=== PATIENT | female | born 1940 | race Caucasian/White ===

== ENCOUNTER 2017-02-08 14:17 | Outpatient (CLI) | payer MEDICARE, OTHER | END 2017-02-08 23:59 | disposition home or self-care (01) | LOC: NM 14:17 | DX: R10.9 Unspecified abdominal pain (principal); Z90.49 Acquired absence of other specified parts of digestive tract | CPT/HCPCS: 78226; A9537 ==

== ENCOUNTER 2017-08-19 11:56 | Emergency (ER) | payer MEDICARE, OTHER ==
[~2017-08-19] VITALS: Ht 170.2 cm; Wt 57.6 kg
[2017-08-19] MEDS ORDERED: LIDOCAINE VISCOUS 2% UD 15 ML UDC ONE (12:58)
[2017-08-19] MEDS ORDERED: MAG HYDROX/AL HYDROX/SIMETH 30 ML UDC ONE (12:59)
[2017-08-19] MEDS ORDERED: LIDOCAINE VISCOUS 2% UD 15 ML UDC MM ONE (13:00)
[2017-08-19] MEDS ORDERED: MAG HYDROX/AL HYDROX/SIMETH 30 ML UDC PO ONE (13:00)
--- NOTE | 2017-08-19 13:00 | NUR ---
PRESENTS TO ER C/O BILAT ABD PAIN SINCE THIS AM, STATES ONGOING X 1 YEAR, WORSENING THIS AM. A/OX 4. BREATHING EVEN AND UNLABORED. NO SOB. VITALS STABLE. SAFETY AND COMFORT MEASURES IN PLACE. AWAITING MD ORDERS.
--- NOTE | 2017-08-19 13:05 | NUR ---
NEW IV STARTED ON LAC, 20 G. BLOOD DRAWN AND SENT TO LAB.
[2017-08-19 13:18] LABS: BASOPHILS % (AUTO) 0.5 % (0.0-2.0); EOSINOPHILS % (AUTO) 0.5 % (0.0-6.0); HEMATOCRIT 45 % (33-45); HEMOGLOBIN 14.6 g/dL (11.5-14.8); LYMPHOCYTES # (AUTO) 1.7 /CMM (0.8-4.8); LYMPHOCYTES % (AUTO) 28.9 % (20.0-44.0); MEAN CORPUSCULAR HEMOGLOBIN 29 PG (26.0-33.0); MEAN CORPUSCULAR HGB CONC 33 g/dl (31.0-36.0); MEAN CORPUSCULAR VOLUME 89 fL (82-100); MONOCYTES # (AUTO) 0.4 /CMM (0.1-1.30); MONOCYTES % (AUTO) 6.4 % (2.0-12.0); NEUTROPHILS # (AUTO) 3.8 /CMM (1.8-8.9); NEUTROPHILS % (AUTO) 63.7 % (43.0-81.0); PLATELET COUNT (AUTO) 203 /CMM (150-450); RDW COEFFICIENT OF VARIATION 14.4 (11.5-15.0); RED BLOOD CELL COUNT(AUTO) 5.03 MIL/uL (4.0-5.2); WHITE BLOOD COUNT (AUTO) 5.9 K/uL (4.3-11.0)
[2017-08-19 13:39] LABS: INR 0.98 (0.87-1.13); PROTHROMBIN TIME 10.2 SECS (9.5-12.7)
[2017-08-19 13:44] LABS: ALANINE AMINOTRANSFERASE 23 U/L (12-78); ALBUMIN 3.7 g/dL (3.4-5.0); ALKALINE PHOSPHATASE 56 U/L (46-116); ASPARTATE AMINOTRANSFERASE 20 U/L (15-37); BILIRUBIN,DIRECT 0.1 mg/dL (0.0-0.2); BILIRUBIN,TOTAL 0.5 mg/dL (0.2-1.0); CALCIUM, SERUM 9.2 mg/dL (8.5-10.1); CARBON DIOXIDE 31 mmol/L (21-32); CHLORIDE 103 mmol/L (98-107); CREATININE 0.6 mg/dL (0.6-1.3); GLUCOSE 95 mg/dL (74-106); LIPASE 98 U/L (73-393); POTASSIUM 4.4 mmol/L (3.5-5.1); SODIUM SERUM 139 mmol/L (136-145); TOTAL PROTEIN, SERUM 6.9 g/dL (6.4-8.2); UREA NITROGEN, BLOOD 13 mg/dL (7-18)
[2017-08-19 13:45] LABS: TROPONIN I < 0.017 ng/mL (0.00-0.056)
[2017-08-19] MEDS ORDERED: IOHEXOL-300 100 ML VIAL IV ONE (13:51)
[2017-08-19] MEDS ORDERED: IV NS 0.9% 250 ML IV ONE (13:52)
--- NOTE | 2017-08-19 14:00 | NUR ---
URINE OBTAINED AND SENT TO LAB.
--- NOTE | 2017-08-19 14:06 | NUR ---
PATIENT TAKEN TO CT VIA STRETCHER.
[2017-08-19 14:16] LABS: APPEARANCE,URINE Clear (CLEAR); BILIRUBIN,URINE Negative (NEGATIVE); BLOOD, URINE Small Ery/uL (NEGATIVE); COLOR,URINE Yellow (YELLOW); KETONES,URINE Negative (NEGATIVE); LEUKOCYTE ESTERASE ,URINE Negative (NEGATIVE); NITRITE, URINE Negative (NEGATIVE); PH,URINE 6.5 (5.0-8.0); PROTEIN,URINE Negative (NEGATIVE); UGLUCOSE Negative (NEGATIVE); UROBILINOGEN,URINE 0.2 EU/dL (0.2)
--- NOTE | 2017-08-19 14:19 | NUR ---
PATIENT RETURNED FROM CT IN STABLE CONDITION.
[2017-08-19 14:25] LABS: BACTERIA,URINE Few /HPF (None Seen); SQUAMOUS EPITHELIAL CELL,UR Moderate /HPF (None Seen); WBC,URINE 0-2 /HPF (0-3)
[2017-08-19 15:19] VITALS: BP 162/89
--- NOTE | 2017-08-19 15:20 | NUR ---
IV removed. Catheter intact and site benign. Pressure and 4x4 applied to site. No bleeding noted. Patient discharged to home in stable condition. Written and verbal after care instructions given. Patient verbalizes understanding of instruction.
== END 2017-08-19 15:20 | disposition home or self-care (01) ==
LOC: ER 11:58
DX: K21.9 Gastro-esophageal reflux disease without esophagitis (principal); R60.0 Localized edema; M19.90 Unspecified osteoarthritis, unspecified site; E78.00 Pure hypercholesterolemia, unspecified; I65.29 Occlusion and stenosis of unspecified carotid artery; F17.200 Nicotine dependence, unspecified, uncomplicated; I10 Essential (primary) hypertension; Z90.49 Acquired absence of other specified parts of digestive tract; Z87.442 Personal history of urinary calculi
CPT/HCPCS: 36415; 71010; 74160; 80048; 80076; 81001; 83690; 84484; 85025; 85730; 93005; 99285; A4606; J7050; Q9967; 81000-TC; Z7610

== ENCOUNTER 2018-05-19 19:17 | Emergency (ER) | payer MEDICARE, OTHER ==
[~2018-05-19] VITALS: Ht 162.6 cm; Wt 71.2 kg
[2018-05-19] MEDS ORDERED: BACITRACIN ZINC OINT PACKET 1 EA PACKET TP ONE ×2 (19:55→20:00)
[2018-05-19] MEDS ORDERED: TDAP [DIPH/PERTUSSIS/TET] 0.5 ML VIAL IM ONE ×2 (19:56→20:00)
[2018-05-19] MEDS ORDERED: ACETAMINOPHEN 325 MG TABLET ONE (19:56)
[2018-05-19] MEDS ORDERED: ACETAMINOPHEN 325 MG TABLET PO ONE (20:00)
--- NOTE | 2018-05-19 20:03 | NUR ---
AGENCY OWNER AT BEDSIDE
[2018-05-19] MEDS ORDERED: LIDOCAINE 1%-EPI 1:100,000 20 ML VIAL ONE (20:26)
[2018-05-19] MEDS ORDERED: LIDOCAINE 1%-EPI 1:100,000 20 ML VIAL TP ONE (20:30)
[2018-05-19 21:53] VITALS: BP 151/88
== END 2018-05-19 21:54 | disposition home or self-care (01) ==
LOC: ER 19:20
DX: S62.102A Fracture of unspecified carpal bone, left wrist, initial encounter for closed fracture (principal); S81.812A Laceration without foreign body, left lower leg, initial encounter; S60.812A Abrasion of left wrist, initial encounter; I10 Essential (primary) hypertension; M19.90 Unspecified osteoarthritis, unspecified site; Z98.890 Other specified postprocedural states; Z87.442 Personal history of urinary calculi; W01.0XXA Fall on same level from slipping, tripping and stumbling without subsequent striking against object, initial encounter; Y93.19 Activity, other involving water and watercraft; Y92.89 Other specified places as the place of occurrence of the external cause; Y99.8 Other external cause status
CPT/HCPCS: 12005; 73080; 73110; 73590; 90471; 90715; 99284; A4606; A6402; A6403; J3490; Z7610

== ENCOUNTER 2018-06-11 17:16 | Inpatient (IN) | payer MEDICARE, OTHER ==
[~2018-06-11] VITALS: Ht 152.4 cm; Wt 68.0 kg
--- NOTE | 2018-06-11 17:20 | NUR ---
BIBDTR DT LOWE LEG INFECTED WOUND. PER DTR PATIENT'S WOUND WAS SUTURED 05/19/18. WOUND APPEARS RED AND NOT HEALING. PT IS CO 7/10 PAIN. PATIENT IS AFEBRILE. VSS
--- NOTE | 2018-06-11 17:27 | NUR ---
MD MORLEY AT BEDSIDE
[2018-06-11 17:55] LABS: BASOPHILS # (AUTO) 0.1 /CMM (0.0-0.2); BASOPHILS % (AUTO) 0.7 % (0.0-2.0); EOSINOPHILS % (AUTO) 1.3 % (0.0-6.0); HEMATOCRIT 44 % (33-45); HEMOGLOBIN 14.4 g/dL (11.5-14.8); LYMPHOCYTES # (AUTO) 2.3 /CMM (0.8-4.8); MEAN CORPUSCULAR HEMOGLOBIN 29 PG (26.0-33.0); MEAN CORPUSCULAR HGB CONC 33 g/dl (31.0-36.0); MEAN CORPUSCULAR VOLUME 88 fL (82-100); MONOCYTES # (AUTO) 0.9 /CMM (0.1-1.30); MONOCYTES % (AUTO) 12.2 % (2.0-12.0); NEUTROPHILS % (AUTO) 54.8 % (43.0-81.0); PLATELET COUNT (AUTO) 252 /CMM (150-450); RDW COEFFICIENT OF VARIATION 13.5 (11.5-15.0); RED BLOOD CELL COUNT(AUTO) 5.06 MIL/uL (4.0-5.2); WHITE BLOOD COUNT (AUTO) 7.4 K/uL (4.3-11.0)
[2018-06-11] MEDS ORDERED: PIPERACILLIN /TAZOBACTAM 3.375 G in IV D5W 50 ML IV ONE (18:00)
[2018-06-11] MEDS ORDERED: VANCOMYCIN 1 GM in IV D5W 250 ML IV ONE (18:00)
[2018-06-11 18:10] LABS: INR 0.96 (0.85-1.15)
[2018-06-11 18:12] LABS: ALANINE AMINOTRANSFERASE 22 U/L (12-78); ALBUMIN 3.6 g/dL (3.4-5.0); ALKALINE PHOSPHATASE 67 U/L (46-116); ASPARTATE AMINOTRANSFERASE 15 U/L (15-37); BILIRUBIN,DIRECT 0.1 mg/dL (0.0-0.2); BILIRUBIN,TOTAL 0.6 mg/dL (0.2-1.0); CALCIUM, SERUM 9.4 mg/dL (8.5-10.1); CARBON DIOXIDE 36 mmol/L (21-32); CHLORIDE 103 mmol/L (98-107); CREATININE 0.8 mg/dL (0.6-1.3); GLUCOSE 93 mg/dL (74-106); POTASSIUM 4.4 mmol/L (3.5-5.1); SODIUM SERUM 138 mmol/L (136-145); TOTAL PROTEIN, SERUM 7.1 g/dL (6.4-8.2); UREA NITROGEN, BLOOD 18 mg/dL (7-18)
[2018-06-11] MEDS ORDERED: LORA-258 PO (18:16)
[2018-06-11] MEDS ORDERED: FLUT1DIS3 IH (18:16)
[2018-06-11] MEDS ORDERED: ATEN25TA PO (18:16)
[2018-06-11] MEDS ORDERED: ESCI10TA PO (18:16)
[2018-06-11] MEDS ORDERED: EZET10TA14 PO (18:16)
[2018-06-11] MEDS ORDERED: GABA-532 PO (18:16)
--- NOTE | 2018-06-11 19:11 | NUR ---
CALLED [employer] WAREHOUSE ENGINEER WAS PAGED.
--- NOTE | 2018-06-11 19:43 | NUR ---
REPORT GIVEN TO TRACIE MANUEL
[2018-06-11 20:00] VITALS: BP 160/93
--- NOTE | 2018-06-11 20:10 | NUR ---
RN ADMITTING NOTES RECEIVED REPORT FROM FILTER OPERATOR KAMILA. Pt ARRIVED TO THE FLOOR VIA WHEELCHAIR, WAS ABLE TO WALK TO THE BED WITH ASSISTANCE. DAUGHTER AT BEDSIDE. Pt IS A/OX4, VERBAL, ABLE TO MAKE NEEDS KNOWN. IV ACCESS ON RAC #20G. SAFETY MEASURES IN PLACE. WILL CONTINUE TO MONITOR Pt THROUGHOUT THE NIGHT FOR SAFETY.
[2018-06-11 20:30] VITALS: BP 160/93
[2018-06-11] MEDS ORDERED: FEE PK DOSING 1 MIN EA MC ONE (20:53)
[2018-06-11] MEDS ORDERED: HYDROCODONE/APAP 5/325MG 1 EACH TABLET PO PRN (21:00)
[2018-06-11] MEDS ORDERED: ONDANSETRON HCL/PF 4 MG/2 ML VIAL IVP PRN (21:00)
[2018-06-11] MEDS ORDERED: ZOLPIDEM TARTRATE 5 MG TABLET PO PRN (21:00)
[2018-06-11] MEDS ORDERED: Z GUARD REMEDY 2 OZ OINT TP PRN (21:00)
[2018-06-11] MEDS ORDERED: MAGNESIUM HYDROXIDE 30 ML UDC PO PRN (21:00)
[2018-06-11] MEDS: ENOXAPARIN SODIUM 40 MG/0.4 ML DISP.SYRIN SQ SCH (22:31)
[2018-06-11] MEDS: ACETAMINOPHEN 325 MG TABLET PO PRN (22:31)
[2018-06-11] MEDS: LORAZEPAM 0.5 MG TABLET PO PRN (22:32)
[2018-06-12] MEDS ORDERED: VANCOMYCIN 500 MG in IV NS 0.9% 100 ML IV SCH (06:00)
--- NOTE | 2018-06-12 06:47 | NUR ---
RN CLOSING NOTES NO SIGNIFICANT CHANGES IN Pt's CONDITION. Pt REMAINS STABLE AT THIS TIME. NO S/S OF ACUTE DISTRESS OR SOB NOTED DURING THE NIGHT. Pt SLEPT WELL WITH EVEN AND UNLABORED RESPIRATIONS. ALL NEEDS MET AND ATTENDED TO. SAFETY MEASURES IN PLACE. BED LOW, LOCKED, HOB ELEVATED, SIDE RAILS UP, CALL LIGHT AND BEDSIDE TABLE WITHIN REACH. WILL ENDORSE TO DAYSHIFT RN FOR Pt's GUZMAN.
[2018-06-12 06:50] LABS: BASOPHILS % (AUTO) 0.4 % (0.0-2.0); EOSINOPHILS % (AUTO) 1.1 % (0.0-6.0); HEMATOCRIT 41 % (33-45); HEMOGLOBIN 13.3 g/dL (11.5-14.8); LYMPHOCYTES % (AUTO) 30.8 % (20.0-44.0); MEAN CORPUSCULAR HEMOGLOBIN 30 PG (26.0-33.0); MEAN CORPUSCULAR HGB CONC 33 g/dl (31.0-36.0); MEAN CORPUSCULAR VOLUME 92 fL (82-100); MONOCYTES # (AUTO) 0.7 /CMM (0.1-1.30); MONOCYTES % (AUTO) 10.1 % (2.0-12.0); NEUTROPHILS # (AUTO) 3.8 /CMM (1.8-8.9); NEUTROPHILS % (AUTO) 57.6 % (43.0-81.0); PLATELET COUNT (AUTO) 216 /CMM (150-450); RDW COEFFICIENT OF VARIATION 13.9 (11.5-15.0); RED BLOOD CELL COUNT(AUTO) 4.46 MIL/uL (4.0-5.2); WHITE BLOOD COUNT (AUTO) 6.6 K/uL (4.3-11.0)
[2018-06-12 07:18] LABS: ALANINE AMINOTRANSFERASE 17 U/L (12-78); ALBUMIN 2.9 g/dL (3.4-5.0); ALKALINE PHOSPHATASE 55 U/L (46-116); ASPARTATE AMINOTRANSFERASE 16 U/L (15-37); BILIRUBIN,TOTAL 0.8 mg/dL (0.2-1.0); CALCIUM, SERUM 8.1 mg/dL (8.5-10.1); CARBON DIOXIDE 31 mmol/L (21-32); CHLORIDE 102 mmol/L (98-107); CREATININE 0.6 mg/dL (0.6-1.3); GLUCOSE 116 mg/dL (74-106); MAGNESIUM 1.9 mg/dL (1.8-2.4); PHOSPHORUS 3.3 mg/dL (2.5-4.9); POTASSIUM 3.8 mmol/L (3.5-5.1); SODIUM SERUM 138 mmol/L (136-145); TOTAL PROTEIN, SERUM 6.2 g/dL (6.4-8.2); UREA NITROGEN, BLOOD 15 mg/dL (7-18)
--- NOTE | 2018-06-12 07:20 | NUR ---
RN NOTE PATIENT A/OX3, TURKMEN SPEAKING, NO DISTRESS NOTED, LLE KEPT COVERED WITH DRY DRESSING. PATIENT C/O MILD PAIN, REFUSED PAIN MEDICATION AT THIS TIME. CALL LIGHT WITHIN REACH, WILL CONTINUE TO MONITOR.
[2018-06-12 07:23] LABS: CHOLESTEROL 207 mg/dL (<200); HDL CHOLESTEROL 65 mg/dL (40-60); LDL 122 mg/dL (0-99); THYROID STIMULATING HORMONE 0.853 uIU/mL (0.358-3.74); TRIGLYCERIDES 125 mg/dL (30-150)
[2018-06-12 07:57] LABS: IRON, SERUM 95 ug/dl (50-175); TOTAL IRON BINDING CAPACITY 277 ug/dl (250-450)
[2018-06-12] MEDS: GABAPENTIN 100 MG CAPSULE PO SCH ×2 (08:56→17:17)
[2018-06-12] MEDS: FLUTICASONE/VILANTEROL 1 EACH BLST.W.DEV IH SCH (08:56)
[2018-06-12] MEDS: ATENOLOL 25 MG TABLET PO SCH (08:56)
[2018-06-12 08:58] VITALS: BP 161/78
[2018-06-12] MEDS ORDERED: EZETIMIBE 10 MG TABLET PO SCH (09:00)
[2018-06-12] MEDS ORDERED: ESCITALOPRAM OXALATE (10 MG) 10 MG TABLET PO SCH (09:00)
--- NOTE | 2018-06-12 09:55 | NUR ---
WOUND CARE CONSULT: PT PRESENTS WITH LEFT LOWER LEG WOUND WHICH WAS A PREVIOUSLY SUTURED LACERATION ONE MONTH AGO, NOW PRESENTS WITH NECROTIC TISSUE AND ODOR, SURROUNDING REDNESS AND SWELLING. RECOMMEND SURGICAL CONSULT. RECOMMENDATIONS MADE FOR LOCAL WOUND CARE AND SKIN PROTECTION. DISCUSSED WITH NURSING STAFF. PT IS AMBULATORY AND CONTINENT. CURRENT JOHANNA SCORE IS 19. WILL SEE PRN. AVALOS IN AGREEMENT WITH PLAN OF CARE. Addendum: 06/12/18 at 0957 by KALEB CASTLE WNDNU Amended: Links added.
[2018-06-12] MEDS ORDERED: MORPHINE SULFATE INJ 2 MG/ML DISP.SYRIN IV PRN (11:30)
[2018-06-12] MEDS: SILVER SULFADIAZINE CREAM 25 GM TUBE TP SCH (13:52)
[2018-06-12 15:52] VITALS: BP 126/74
[2018-06-12] MEDS: VANCOMYCIN 500 MG in IV D5W 100 ML IV SCH (17:17)
--- NOTE | 2018-06-12 18:32 | NUR ---
RN NOTES PATIENT A/OX3, TURKMEN SPEAKING, NO SIGNIFICANT CHANGE DURING THIS SHIFT, WOUND TREATMENT RENDERED, PATIENT'S BLE ELEVATED, NEEDS ATTENDED AND MET, CALL LIGHT WITHIN REACH, WILL ENDORSE TO SENIOR STATISTICAL PROGRAMMER FOR GUZMAN.
--- NOTE | 2018-06-12 19:35 | NUR ---
MS RN NOTES RECEIVED ON BED A/O X3,BREATHING REGULAR,NOT IN ANY FORM OF DISTRESS,THAI SPEAKING,UNDERSTAND DIVEHI.SALINE LOCK RIGHT AC INTACT AND PATENT.LEFT LOWER LEG WITH DRESSING INTACT AND DRY,ELEVATED ON PILLOWS.PAIN TOLERABLE AT THE MOMENT.CALL LIGHT IN REACH ,NEEDS ANTICIPATED.
[2018-06-12 20:00] VITALS: BP 119/65
--- NOTE | 2018-06-12 20:30 | NUR ---
MS RN NOTES STARTED ON ROCEPHIN 1GM IVPB NEW ORDER BY VIOLETTA RILEY
[2018-06-12] MEDS: CEFTRIAXONE 1 G in IV NS 0.9% 50 ML IV SCH (20:37)
[2018-06-12] MEDS: ENOXAPARIN SODIUM 40 MG/0.4 ML DISP.SYRIN SQ SCH (21:00)
[2018-06-12] MEDS: LORAZEPAM 0.5 MG TABLET PO PRN (22:01)
[2018-06-12] MEDS: EZETIMIBE 10 MG TABLET PO SCH (22:01)
[2018-06-12] MEDS: ESCITALOPRAM OXALATE (10 MG) 10 MG TABLET PO SCH (22:01)
--- NOTE | 2018-06-12 22:01 | NUR ---
MS RN NOTES C/O INSOMNIA,LORAZEPAM 0.5MG PO GIVEN PER PATIENT REQUEST.OFFERED AMBIEN 5MG PO BUT REFUSED.
[2018-06-13 05:28] LABS: BASOPHILS % (AUTO) 0.7 % (0.0-2.0); EOSINOPHILS % (AUTO) 1.2 % (0.0-6.0); HEMATOCRIT 41 % (33-45); HEMOGLOBIN 13.5 g/dL (11.5-14.8); LYMPHOCYTES # (AUTO) 2.3 /CMM (0.8-4.8); MEAN CORPUSCULAR HEMOGLOBIN 30 PG (26.0-33.0); MEAN CORPUSCULAR HGB CONC 33 g/dl (31.0-36.0); MEAN CORPUSCULAR VOLUME 91 fL (82-100); MONOCYTES # (AUTO) 0.6 /CMM (0.1-1.30); MONOCYTES % (AUTO) 10.6 % (2.0-12.0); NEUTROPHILS # (AUTO) 2.8 /CMM (1.8-8.9); NEUTROPHILS % (AUTO) 48.5 % (43.0-81.0); PLATELET COUNT (AUTO) 227 /CMM (150-450); RDW COEFFICIENT OF VARIATION 14.2 (11.5-15.0); RED BLOOD CELL COUNT(AUTO) 4.51 MIL/uL (4.0-5.2); WHITE BLOOD COUNT (AUTO) 5.8 K/uL (4.3-11.0)
[2018-06-13 05:40] LABS: CALCIUM, SERUM 8.7 mg/dL (8.5-10.1); CARBON DIOXIDE 34 mmol/L (21-32); CHLORIDE 105 mmol/L (98-107); CREATININE 0.8 mg/dL (0.6-1.3); GLUCOSE 101 mg/dL (74-106); MAGNESIUM 1.9 mg/dL (1.8-2.4); PHOSPHORUS 3.9 mg/dL (2.5-4.9); POTASSIUM 4.4 mmol/L (3.5-5.1); SODIUM SERUM 143 mmol/L (136-145); UREA NITROGEN, BLOOD 13 mg/dL (7-18)
[2018-06-13] MEDS: VANCOMYCIN 500 MG in IV D5W 100 ML IV SCH (05:52)
--- NOTE | 2018-06-13 07:20 | NUR ---
MS RN NOTES NO SIGNIFICANT CHANGE IN STATUS.SLEPT WELL WITH ATIVAN PO.DENIES PAIN.CALL LIGHT IN REACH,NEEDS ATTENDED.ENDORSED TO DAYA MANUEL FOR GUZMAN.
--- NOTE | 2018-06-13 07:20 | NUR ---
RN NOTES PATIENT A/OX4, NO DISTRESS NOTED, DENIES PAIN OR DISCOMFORT AT THIS TIME. DRY DRESSING ON LLE KEPT CLEAN AND DRY, KEPT COMFORTABLE, NEEDS ATTENDED, CALL LIGHT WITHIN REACH, WILL CONTINUE TO MONITOR.
[2018-06-13 08:00] VITALS: BP 150/84
[2018-06-13] MEDS: GABAPENTIN 100 MG CAPSULE PO SCH ×2 (08:55→16:24)
[2018-06-13] MEDS: ESCITALOPRAM OXALATE (10 MG) 10 MG TABLET PO SCH (08:55)
[2018-06-13] MEDS: ACETAMINOPHEN 325 MG TABLET PO PRN ×2 (08:55→16:34)
[2018-06-13] MEDS: ATENOLOL 25 MG TABLET PO SCH (08:56)
[2018-06-13] MEDS: FLUTICASONE/VILANTEROL 1 EACH BLST.W.DEV IH SCH (08:56)
[2018-06-13] MEDS: SILVER SULFADIAZINE CREAM 25 GM TUBE TP SCH (08:59)
[2018-06-13 16:03] VITALS: BP 154/84
[2018-06-13] MEDS: VANCOMYCIN 0.75 GM in IV D5W 250 ML IV SCH (17:25)
--- NOTE | 2018-06-13 18:20 | NUR ---
RN NOTES PATIENT A/OX3, NO SIGNIFICANT CHANGE THIS SHIFT, WOUND TREATMENT RENDERED, KEPT LLE DRESSING CLEAN, DRY AND INTACT. REMOVED RIGHT AC PIV, AND REINSERTED A NEW PIV ON RIGHT FA #22. KEPT PATIENT COMFORTABLE, FAMILY AT BEDSIDE, NEEDS ATTENDED, CALL LIGHT WITHIN REACH, WILL ENDORSE TO LOOP SEWER FOR GUZMAN.
--- NOTE | 2018-06-13 19:30 | NUR ---
MS RN NOTES RECEIVED OOB WITH FAMILY MEMBER INSIDE THE ROOM.AMBULATE WITH STEADY GAIT.SALINE LOCK LFA INTACT AND PATENT.LEFT LOWER LEGT DRESSING INTACT AND DRY,ELEVATED ON PILLOWS.PAIN TOLERABLE AT THE MOMENT.CALL LIGHT IN REACH,NEEDS ANTICIPATED.
[2018-06-13 20:00] VITALS: BP 159/86
[2018-06-13] MEDS: CEFTRIAXONE 1 G in IV NS 0.9% 50 ML IV SCH (20:45)
[2018-06-13] MEDS: ENOXAPARIN SODIUM 40 MG/0.4 ML DISP.SYRIN SQ SCH (20:46)
--- NOTE | 2018-06-13 22:00 | NUR ---
MS RN NOTES FEELING ANXIOUS,LORAZEPAM 0.5MG PO GIVEN PER PATIENT REQUEST.
[2018-06-13] MEDS: LORAZEPAM 0.5 MG TABLET PO PRN (22:08)
[2018-06-13] MEDS: EZETIMIBE 10 MG TABLET PO SCH (22:09)
[2018-06-14] MEDS: VANCOMYCIN 0.75 GM in IV D5W 250 ML IV SCH ×2 (05:34→17:17)
[2018-06-14 06:49] LABS: BASOPHILS % (AUTO) 0.3 % (0.0-2.0); EOSINOPHILS % (AUTO) 1.4 % (0.0-6.0); HEMATOCRIT 42 % (33-45); LYMPHOCYTES # (AUTO) 2.4 /CMM (0.8-4.8); LYMPHOCYTES % (AUTO) 43.1 % (20.0-44.0); MEAN CORPUSCULAR HEMOGLOBIN 30 PG (26.0-33.0); MEAN CORPUSCULAR HGB CONC 33 g/dl (31.0-36.0); MEAN CORPUSCULAR VOLUME 91 fL (82-100); MONOCYTES # (AUTO) 0.5 /CMM (0.1-1.30); MONOCYTES % (AUTO) 9.1 % (2.0-12.0); NEUTROPHILS # (AUTO) 2.6 /CMM (1.8-8.9); NEUTROPHILS % (AUTO) 46.1 % (43.0-81.0); PLATELET COUNT (AUTO) 250 /CMM (150-450); RDW COEFFICIENT OF VARIATION 14.4 (11.5-15.0); RED BLOOD CELL COUNT(AUTO) 4.65 MIL/uL (4.0-5.2); WHITE BLOOD COUNT (AUTO) 5.6 K/uL (4.3-11.0)
--- NOTE | 2018-06-14 06:53 | NUR ---
MS RN NOTES SLEPT WELL WITH LORAZEPAM PO.DENIES PAIN.AMBULATES WITH STEADY GAIT.IV ABX TOLERATED WELL.CALL LIGHT IN REACH,NEEDS ATTENDED.ENDORSED TO DAY NURSE FOR GUZMAN.
[2018-06-14 07:16] LABS: CALCIUM, SERUM 8.9 mg/dL (8.5-10.1); CARBON DIOXIDE 34 mmol/L (21-32); CHLORIDE 105 mmol/L (98-107); CREATININE 0.7 mg/dL (0.6-1.3); GLUCOSE 95 mg/dL (74-106); MAGNESIUM 1.9 mg/dL (1.8-2.4); PHOSPHORUS 3.9 mg/dL (2.5-4.9); POTASSIUM 4.6 mmol/L (3.5-5.1); SODIUM SERUM 144 mmol/L (136-145); UREA NITROGEN, BLOOD 15 mg/dL (7-18)
--- NOTE | 2018-06-14 07:22 | NUR ---
MS RN NOTES RECEIVED PT ASLEEP IN BED, EASILY AROUSABLE. HOB ELEVATED. NO ACUTE SIGNS OF DISTRESS NOTED. ON ROOM AIR, BREATHING EVEN AND UNLABORED. IV ACCESS ON RFA G#22 INTACT AND PATENT, FLUSHES WELL. DRESSING ON LLE C/D/I AND ELEVATED WITH PILLOWS. SAFETY MEASURES IN PLACE. BED IN LOWEST LOCKED POSITION. SR UP X2. CALL LIGHT WITHIN REACH. WILL CONTINUE TO MONITOR.
[2018-06-14 08:00] VITALS: BP 144/74
[2018-06-14] MEDS: FLUTICASONE/VILANTEROL 1 EACH BLST.W.DEV IH SCH (08:23)
[2018-06-14] MEDS: GABAPENTIN 100 MG CAPSULE PO SCH ×2 (08:23→16:28)
[2018-06-14] MEDS: ESCITALOPRAM OXALATE (10 MG) 10 MG TABLET PO SCH (08:24)
[2018-06-14] MEDS: ATENOLOL 25 MG TABLET PO SCH (08:24)
[2018-06-14] MEDS: SILVER SULFADIAZINE CREAM 25 GM TUBE TP SCH (08:25)
--- NOTE | 2018-06-14 08:37 | NUR ---
RN NOTES CECI OROZCO CAME AND SPOKE TO PATIENT. DISCUSSED AND EXPLAINED TO PATIENT THAT SHE WILL DO EXCISIONAL DEBRIDEMENT OF LEFT LOWER LEG WOUND. PT VERBALIZED UNDERSTANDING AND SIGNED CONSENT.
--- NOTE | 2018-06-14 09:25 | NUR ---
RN NOTES EXCISIONAL DEBRIDEMENT OF LEFT LOWER LEG WOUND DONE BY CECI OROZCO THEN WOUND DRESSING DONE ORDERED. WILL CONTINUE TO MONITOR
[2018-06-14] MEDS: ACETAMINOPHEN 325 MG TABLET PO PRN (14:15)
--- NOTE | 2018-06-14 14:16 | NUR ---
RN NOTES PATIENT C/O HEADACHE, PRN TYLENOL 650MG PO GIVEN. WILL CONTINUE TO MONITOR.
[2018-06-14 16:00] VITALS: BP 145/76
[2018-06-14] MEDS: LACTOBACILLUS RHAMNOSUS GG 1 EACH CAP.SPRINK PO SCH (16:28)
--- NOTE | 2018-06-14 18:20 | NUR ---
RN NOTES PATIENT NOTED WITH IV ACCESS ON RFA LEAKING. IV LINE REMOVED AND APPLIED PRESSURE GAUZE. NEW IV LINE INSERTED ON RIGHT HAND G# 22 AND SECURED WITH TAPE.
--- NOTE | 2018-06-14 18:32 | NUR ---
MS RN CLOSING NOTES PATIENT RESTING IN BED AT MODERATE HIGH BACKREST POSITION. A/O X 4. PERUVIAN SPEAKING AND AMBULATORY. ON ROOM AIR, BREATHING EVEN WITH NO ACUTE DISTRESS NOTED. SALINE LOCK IV ACCESS ON RIGHT HAND G#22 INTACT AND PATENT, FLUSHES WELL. DRESSING ON LLE C/D/I AND ELEVATED WITH PILLOWS. ALL SAFETY MEASURES KEPT IN PLACE. BED IN LOWEST LOCKED POSITION WITH SR UP X2. CALL LIGHT WITHIN REACH. ALL NEEDS AND CARE ATTENDED WELL. WILL ENDORSE TO DIRECTOR OF GIFT PLANNING NURSE FOR GUZMAN.
--- NOTE | 2018-06-14 19:00 | NUR ---
MS RN OPENING NOTE RECEIVE PATIENT AWAKE IN BED, A/O X 3, NO SOB OR DISTRESS NOTED, CALL LIGHT WITHIN REACH. SAFETY MEASURES IMPLEMENTED. WILL CONTINUE TO MONITOR THROUGHOUT SHIFT.
--- NOTE | 2018-06-14 19:22 | NUR ---
RN NOTES PATIENT MOVED TO ROOM 323-2. REPORT GIVEN TO NIGHT NURSE KAROLYN FOR CONTINUITY OF CARE.
[2018-06-14 20:00] VITALS: BP 141/72
[2018-06-14] MEDS: LORAZEPAM 0.5 MG TABLET PO PRN (20:52)
[2018-06-14] MEDS: ENOXAPARIN SODIUM 40 MG/0.4 ML DISP.SYRIN SQ SCH (20:53)
[2018-06-14] MEDS ORDERED: CEFTRIAXONE 1 G in IV D5W 50 ML IV SCH (21:00)
[2018-06-14] MEDS: EZETIMIBE 10 MG TABLET PO SCH (21:00)
[2018-06-15] MEDS: VANCOMYCIN 0.75 GM in IV D5W 250 ML IV SCH (05:10)
--- NOTE | 2018-06-15 06:27 | NUR ---
MS RN CLOSING NOTES PT COMFORTABLY ASLEEP AND EASILY AWAKEN, STABLE, NOT IN DISTRESS. TOLERATING ROOM AIR 98% RESPIRATION EVEN AND UNLABORED. KEPT CLEAN AND DRY AND COMFORTABLE, ALL NURSING CARE RENDERED. NEEDS ATTENDED AND ANTICIPATED, NO COMPLAIN OF PAIN. GOOD SKIN CARE PROVIDED. ON LOW BED AT ALL TIMES TO ENSURE SAFETY. SAFE HAZARD FREE ENVIRONMENT PROVIDED. CALL LIGHT WITHIN EASY TO REACH. WILL ENDORSE NEXT SHIFT CONTINUITY OF CARE.
[2018-06-15 07:10] LABS: CALCIUM, SERUM 8.9 mg/dL (8.5-10.1); CARBON DIOXIDE 33 mmol/L (21-32); CHLORIDE 104 mmol/L (98-107); CREATININE 0.7 mg/dL (0.6-1.3); GLUCOSE 125 mg/dL (74-106); POTASSIUM 4.3 mmol/L (3.5-5.1); SODIUM SERUM 142 mmol/L (136-145); UREA NITROGEN, BLOOD 16 mg/dL (7-18)
--- NOTE | 2018-06-15 07:20 | NUR ---
MS RN OPENING NOTES PATIENT RECEIVED AWAKE IN BED IN NO ACUTE SIGNS OF DISTRESS. HOB ELEVATED. A/O X 4. KINYARWANDA SPEAKING, DENIES PAIN OR ANY DISCOMFORTS AT THIS TIME. ON ROOM AIR, BREATHING EVEN AND UNLABORED. IV ACCESS ON RIGHT HAND G#22 INTACT AND PATENT, FLUSHES WELL. DRESSING ON LLE C/D/I AND ELEVATED WITH PILLOWS. SAFETY MEASURES IN PLACE. BED IN LOWEST LOCKED POSITION WITH SIDE RAILS UP X2. CALL LIGHT WITHIN REACH. WILL CONTINUE TO MONITOR.
[2018-06-15 08:00] VITALS: BP 132/74
[2018-06-15] MEDS: GABAPENTIN 100 MG CAPSULE PO SCH (08:17)
[2018-06-15 08:18] VITALS: BP 132/74
[2018-06-15] MEDS: LACTOBACILLUS RHAMNOSUS GG 1 EACH CAP.SPRINK PO SCH (08:18)
[2018-06-15] MEDS: ESCITALOPRAM OXALATE (10 MG) 10 MG TABLET PO SCH (08:18)
[2018-06-15] MEDS: ATENOLOL 25 MG TABLET PO SCH (08:18)
[2018-06-15] MEDS: SILVER SULFADIAZINE CREAM 25 GM TUBE TP SCH (08:19)
[2018-06-15] MEDS: FLUTICASONE/VILANTEROL 1 EACH BLST.W.DEV IH SCH (08:21)
--- NOTE | 2018-06-15 11:45 | NUR ---
RN DISCHARGED NOTES PATIENT DISCHARGED HOME IN STABLE CONDITION. A/O X4 AND VERBALLY RESPONSIVE. NO COMPLAINTS VOICED DURING DISCHARGE. V/S TAKEN AND RECORDED. PHOTOS OF SKIN TAKEN AND FILED ON CHART. ALL BELONGINGS CHECKED, COUNTED AND SIGNED FORMED BY DAUGHTER BRINA. HEALTH TEACHINGS GIVEN TO PT AND DAUGHTER WITH VERBALIZATION OF UNDERSTANDING. PRESCRIPTION OF BACTRIM AND APPOINTMENT LETTER FOR Sunday06/17/2018 GIVEN TO DAUGHTER BRINA. PT LEFT UNIT AT 1130H VIA WHEELCHAIR ACCOMPANIED BY SENIOR DATA MINING ANALYST AND DAUGHTER. MD AND CHARGE NURSE AWARE OF DISCHARGE.
[2018-06-15] MEDS ORDERED: LEVOFLOXACIN 750 MG /D5W 150ML 750 MG in PREMIX 1 EA IV SCH (12:00)
== END 2018-06-15 11:45 | disposition home or self-care (01) | DRG 572 ==
LOC: ER 17:19 → MEDSG2 19:37 → MED 06-14 18:34
PROVIDERS: ADMIT Nurse Practitioner Acute Care; ATTEND Nurse Practitioner Acute Care
PROC: 0JBP0ZZ Excision of Left Lower Leg Subcutaneous Tissue and Fascia, Open Approach (ICD-10-PCS; principal; 2018-06-14)
DX: L03.116 Cellulitis of left lower limb (principal); K21.9 Gastro-esophageal reflux disease without esophagitis; E78.5 Hyperlipidemia, unspecified; F32.9 Major depressive disorder, single episode, unspecified; F41.9 Anxiety disorder, unspecified; Z87.442 Personal history of urinary calculi; Z79.899 Other long term (current) drug therapy; M19.90 Unspecified osteoarthritis, unspecified site; Z90.49 Acquired absence of other specified parts of digestive tract; J44.9 Chronic obstructive pulmonary disease, unspecified; N20.0 Calculus of kidney; E66.9 Obesity, unspecified; Z68.29 Body mass index [BMI] 29.0-29.9, adult; I10 Essential (primary) hypertension
CPT/HCPCS: 36415; 71045-TC; 80048-TC; 80053-TC; 80061-TC; 80076-TC; 80202-TC; 83540-TC; 83605-TC; 83735-TC; 84100-TC; 84443-TC; 85025-TC; 85730-TC; 87040-TC; 87070-TC; 87081-TC; 87186-TC; A4216; A4606; A6253; A6402; A6403; J0696; J1650; J1956; J2543; J3370; J7030; J7050; J7060; Z7610

== ENCOUNTER 2018-06-17 13:52 | Outpatient (CLI) | payer MEDICARE, OTHER ==
[~2018-06-17 13:52] MED LIST: ATEN25TA PO; ESCI10TA PO; EZET10TA14 PO; FLUT1DIS3 IH; GABA-532 PO; LORA-258 PO
[2018-06-17 14:03] VITALS: BP 139/73
== END 2018-06-17 23:59 | disposition home or self-care (01) ==
LOC: MSC 13:52
PROVIDERS: ATTEND Nurse Practitioner Acute Care
DX: L03.116 Cellulitis of left lower limb (principal); B96.89 Other specified bacterial agents as the cause of diseases classified elsewhere; I10 Essential (primary) hypertension; E78.5 Hyperlipidemia, unspecified; G62.9 Polyneuropathy, unspecified; F32.9 Major depressive disorder, single episode, unspecified; F41.9 Anxiety disorder, unspecified; E66.9 Obesity, unspecified; Z71.3 Dietary counseling and surveillance

== ENCOUNTER 2018-06-17 14:21 | Outpatient (CLI) | payer MEDICARE, OTHER | END 2018-06-17 23:59 | disposition home health service (06) | LOC: WOU 14:21 | PROVIDERS: ATTEND Surgery | DX: S81.812A Laceration without foreign body, left lower leg, initial encounter (principal); L03.116 Cellulitis of left lower limb; M19.90 Unspecified osteoarthritis, unspecified site; I10 Essential (primary) hypertension; E66.3 Overweight; Z68.27 Body mass index [BMI] 27.0-27.9, adult; Z71.3 Dietary counseling and surveillance; W19.XXXA Unspecified fall, initial encounter; Y93.H2 Activity, gardening and landscaping; Y92.096 Garden or yard of other non-institutional residence as the place of occurrence of the external cause | CPT/HCPCS: 11042; 11045; A6402; Z7610 ==

== ENCOUNTER 2018-07-02 14:00 | Outpatient (CLI) | payer MEDICARE, OTHER | END 2018-07-02 23:59 | disposition home health service (06) | LOC: WOU 14:00 | PROVIDERS: ATTEND Surgery | DX: S81.812A Laceration without foreign body, left lower leg, initial encounter (principal); L03.116 Cellulitis of left lower limb; W19.XXXA Unspecified fall, initial encounter; Y93.H2 Activity, gardening and landscaping; Y92.096 Garden or yard of other non-institutional residence as the place of occurrence of the external cause; I10 Essential (primary) hypertension; E66.3 Overweight; Z68.27 Body mass index [BMI] 27.0-27.9, adult; Z71.3 Dietary counseling and surveillance; F17.200 Nicotine dependence, unspecified, uncomplicated; H26.9 Unspecified cataract | CPT/HCPCS: 11042; A6402; Z7610 ==

== ENCOUNTER 2018-07-11 12:45 | Outpatient (CLI) | payer MEDICARE, OTHER | END 2018-07-11 23:59 | disposition home health service (06) | LOC: WOU 12:45 | PROVIDERS: ATTEND Surgery | DX: S81.812A Laceration without foreign body, left lower leg, initial encounter (principal); S81.811A Laceration without foreign body, right lower leg, initial encounter; W19.XXXA Unspecified fall, initial encounter; Y93.H2 Activity, gardening and landscaping; Y92.007 Garden or yard of unspecified non-institutional (private) residence as the place of occurrence of the external cause; H26.9 Unspecified cataract; F17.200 Nicotine dependence, unspecified, uncomplicated; R26.2 Difficulty in walking, not elsewhere classified; M62.50 Muscle wasting and atrophy, not elsewhere classified, unspecified site | CPT/HCPCS: 11042; A6402; Z7610; A6210 ==

== ENCOUNTER 2018-07-15 13:40 | Outpatient (CLI) | payer MEDICARE, OTHER | END 2018-07-15 23:59 | disposition home health service (06) | LOC: WOU 13:40 | PROVIDERS: ATTEND Surgery | DX: S81.812A Laceration without foreign body, left lower leg, initial encounter (principal); S81.811A Laceration without foreign body, right lower leg, initial encounter; L03.116 Cellulitis of left lower limb; L03.115 Cellulitis of right lower limb; W19.XXXA Unspecified fall, initial encounter; Y93.H2 Activity, gardening and landscaping; Y92.096 Garden or yard of other non-institutional residence as the place of occurrence of the external cause; Y99.8 Other external cause status; F17.200 Nicotine dependence, unspecified, uncomplicated; E66.3 Overweight; Z68.27 Body mass index [BMI] 27.0-27.9, adult; Z71.3 Dietary counseling and surveillance; M19.90 Unspecified osteoarthritis, unspecified site; I10 Essential (primary) hypertension | CPT/HCPCS: 11042; A6402 ×2; Z7610 ==

== ENCOUNTER 2018-07-22 13:45 | Outpatient (CLI) | payer MEDICARE, OTHER | END 2018-07-22 23:59 | disposition home health service (06) | LOC: WOU 13:45 | PROVIDERS: ATTEND Surgery | DX: S81.811A Laceration without foreign body, right lower leg, initial encounter (principal); L03.115 Cellulitis of right lower limb; W18.30XA Fall on same level, unspecified, initial encounter; Y93.H2 Activity, gardening and landscaping; Y92.096 Garden or yard of other non-institutional residence as the place of occurrence of the external cause; Y99.8 Other external cause status; E66.3 Overweight; Z68.27 Body mass index [BMI] 27.0-27.9, adult; I10 Essential (primary) hypertension; F17.200 Nicotine dependence, unspecified, uncomplicated; M19.90 Unspecified osteoarthritis, unspecified site | CPT/HCPCS: 11042; A6402; Z7610 ==

== ENCOUNTER 2018-07-29 15:32 | Outpatient (CLI) | payer MEDICARE, OTHER | END 2018-07-29 23:59 | disposition home health service (06) | LOC: WOU 15:32 | PROVIDERS: ATTEND Surgery | DX: S81.811A Laceration without foreign body, right lower leg, initial encounter (principal); L03.115 Cellulitis of right lower limb; X58.XXXA Exposure to other specified factors, initial encounter; Y93.89 Activity, other specified; Y92.89 Other specified places as the place of occurrence of the external cause; E66.3 Overweight; Z68.27 Body mass index [BMI] 27.0-27.9, adult; I10 Essential (primary) hypertension; M19.90 Unspecified osteoarthritis, unspecified site; F17.200 Nicotine dependence, unspecified, uncomplicated | CPT/HCPCS: 11042; A6402; Z7610 ==

== ENCOUNTER 2018-08-05 13:45 | Outpatient (CLI) | payer MEDICARE, OTHER | END 2018-08-05 23:59 | disposition home or self-care (01) | LOC: WOU 13:45 | PROVIDERS: ATTEND Surgery | DX: S81.811A Laceration without foreign body, right lower leg, initial encounter (principal); L03.115 Cellulitis of right lower limb; X58.XXXA Exposure to other specified factors, initial encounter; Y93.89 Activity, other specified; Y92.89 Other specified places as the place of occurrence of the external cause; E66.3 Overweight; Z68.27 Body mass index [BMI] 27.0-27.9, adult; I10 Essential (primary) hypertension; M19.90 Unspecified osteoarthritis, unspecified site | CPT/HCPCS: 11043; A6402; Z7610 ==

== ENCOUNTER 2018-09-30 15:05 | Outpatient (CLI) | payer MEDICARE, OTHER | END 2018-09-30 23:59 | disposition home health service (06) | LOC: WOU 15:05 | PROVIDERS: ATTEND Surgery | DX: S81.811A Laceration without foreign body, right lower leg, initial encounter (principal); L03.115 Cellulitis of right lower limb; X58.XXXA Exposure to other specified factors, initial encounter; Y92.89 Other specified places as the place of occurrence of the external cause; E66.3 Overweight; Z68.27 Body mass index [BMI] 27.0-27.9, adult; I10 Essential (primary) hypertension; M19.90 Unspecified osteoarthritis, unspecified site; F17.200 Nicotine dependence, unspecified, uncomplicated | CPT/HCPCS: 11042; A6402 ==

== ENCOUNTER 2018-12-16 14:30 | Outpatient (CLI) | payer MEDICARE, OTHER | END 2018-12-16 23:59 | disposition home health service (06) | LOC: WOU 14:30 | PROVIDERS: ATTEND Surgery | DX: S81.811A Laceration without foreign body, right lower leg, initial encounter (principal); X58.XXXA Exposure to other specified factors, initial encounter; Y92.89 Other specified places as the place of occurrence of the external cause; L03.115 Cellulitis of right lower limb; E66.3 Overweight; Z68.27 Body mass index [BMI] 27.0-27.9, adult; I10 Essential (primary) hypertension; M19.90 Unspecified osteoarthritis, unspecified site; Z79.899 Other long term (current) drug therapy | CPT/HCPCS: 11042; A6402 ==

== ENCOUNTER 2018-12-30 14:01 | Outpatient (CLI) | payer MEDICARE, OTHER | END 2018-12-30 23:59 | disposition home health service (06) | LOC: WOU 14:01 | PROVIDERS: ATTEND Surgery | DX: S81.811A Laceration without foreign body, right lower leg, initial encounter (principal); X58.XXXA Exposure to other specified factors, initial encounter; Y92.89 Other specified places as the place of occurrence of the external cause; M19.90 Unspecified osteoarthritis, unspecified site; I10 Essential (primary) hypertension; E66.3 Overweight; Z68.27 Body mass index [BMI] 27.0-27.9, adult; Z71.3 Dietary counseling and surveillance | CPT/HCPCS: 11042; A6402 ==